=== PATIENT | female | born 1990 | race Caucasian/White ===

== ENCOUNTER 2018-05-28 18:19 | Emergency (ER) | payer OTHER, SELFPAY ==
[2018-05-28 18:20] VITALS: BP 129/73; PULSE 89; RESP 16; TEMP 36.9; O2SAT 98; BMI 21.7
[2018-05-28 18:57] LABS: Bacteria 0 SEEN /hpf (None Seen); Mucous, Urine 0 SEEN /hpf (<or=2+)
[2018-05-28 19:07] LABS: Color, Urine Straw (Yellow); Glucose, Dipstick Normal (Normal); Ketone-Dipstick Negative (Negative); Leukocyte Esterase-Dipstick 500 /ul (Negative); Nitrite-Dipstick Negative (Negative); Occult Blood-Urine 250 /ul (Negative); Protein-Dipstick 100 mg/dl (Negative); Specific Gravity, Urine 1.015 (1.002-1.030); Urine Bilirubin Dipstick Negative (Negative); Urine Clarity Cloudy (Clear); Urine Urobilinogen Normal (Normal)
[2018-05-28 19:27] LABS: Red Blood Cells-Urine 50-100 SEEN /hpf (0-5); White Blood Cells >100 SEEN /hpf (0-5)
[2018-05-28 19:28] LABS: Squamous Epithelial Cells - UA 0-5 SEEN /hpf (5-10)
--- NOTE | 2018-05-28 19:28 | ED.VISSUMM ---
- ER Visit Summary Date of Service: 05/28/18 Chief Complaint: [Dysuria] History of Present Illness: The patient is a 27 F [presents to the emergency department complaint of dysuria since noon today. Patient complains of frequency and urgency. Patient has not had a fever. She has had no nausea or vomiting. Patient noticed that this afternoon the urine turned bloody. Patient last had a urinary tract infection several months ago.] Physical Examination: [HEENT-PERRLA, EOMI. Cranial nerves II through XII grossly intact. TMs clear. Mucous membranes moist. No adenopathy. Cardiovascular-regular rate and rhythm without murmur or ectopy Lungs-clear to auscultation, chest wall stable without crepitus or subcu emphysema Abdomen-normoactive bowel sounds, soft, nontender, no rebound or rigidity, no peritoneal signs. No CVA tenderness Extremities-intact ?4, normal range of motion, normal pulses, atraumatic] Test Results: [Urinalysis with 500 leukocyte esterase and signs of infection.] Emergency Department Course and Treatment: [Patient was started on Nexium.] Treatment Plan: [We will treat with Bactrim and Pyridium. Patient advised to follow-up with physician big data solutions architect for no doc within the next 3-5 days. Patient to return if fever, vomiting, worsening pain, or condition should worsen anyway.] Disposition: [Discharged home in stable condition] Impression: [Urinary tract infection/hemorrhagic cystitis] This note was generated with [employer] dictation software. It may contain incorrect words, spelling, and punctuation that were not noted in review of the chart prior to signing ED Disposition - Plan for ED Patient: Chief Complaint: Complaint Referrals: Care Physician,No Primary [Primary Care Provider] -
--- NOTE | 2018-05-28 19:29 | ED.DEP ---
ED Disposition - Plan for ED Patient: Chief Complaint: Complaint Instructions: ED UTI Cystitis Female Prescriptions: Phenazopyridine HCl [Pyridium] 200 mg PO BID PRN PRN #10 tab PRN Reason: Pain Smz/Tmp Ds [Bactrim Ds] 1 tab PO BID #14 tab Referrals: Care Physician,No Primary [Primary Care Provider] - Melva Sandoval DO [STAFF PHYSICIAN] - 3-5 Days
[2018-05-28] MEDS: Smz/Tmp Ds Tablet 1 TABLET PO (19:37)
[2018-05-28 19:40] VITALS: BP 120/70; PULSE 79; RESP 16; O2SAT 97
== END 2018-05-28 19:41 | disposition home or self-care (01) ==
PROVIDERS: Emergency Provider Emergency Medicine
DX: N30.91 Cystitis, unspecified with hematuria (principal); Z87.440 Personal history of urinary (tract) infections
CPT/HCPCS: 81001; 99283